=== PATIENT | male | born 1955 | race Caucasian/White ===

== ENCOUNTER → 2016-06-19 | Outpatient (CLI) | payer OTHER ==
[~2016-06-19] MED LIST: HYDR-2768 PO; HYDR-3533 PO; LISI40TA PO; TAB-TAB PO; TAMS0.4C67 PO; VITA100T15 PO; ZOFR4TAB3 SL
[2016-06-19 12:45] LABS: AUTOMATED NEUTROPHIL # 5.9 TH/MM3 (1.8-7.7); BASOPHIL # 0.1 TH/MM3 (0-0.2); BASOPHIL % 0.8 % (0.0-2.0); EOSINOPHIL # 0.2 TH/MM3 (0-0.4); EOSINOPHIL % 2.6 % (0.0-4.0); HEMATOCRIT 45.7 % (39.0-51.0); HEMO FLAGS DIFF FINAL; LYMPH % 23.7 % (9.0-44.0); LYMPHOCYTE # 2.1 TH/MM3 (1.0-4.8); MEAN CELL VOLUME 93.8 FL (80.0-100.0); MEAN CORPUSCULAR HEMOGLOBIN 32.2 PG (27.0-34.0); MEAN CORPUSCULAR HGB CONC 34.4 % (32.0-36.0); MONO % 7.7 % (0.0-8.0); NEUT % 65.2 % (16.0-70.0); PLATELET COUNT 216 TH/MM3 (150-450); RED BLOOD COUNT 4.87 MIL/MM3 (4.50-5.90); RED CELL DISTRIBUTION WIDTH 13.1 % (11.6-17.2)
[2016-06-19 13:23] LABS: ANION GAP 7 MEQ/L (5-15); AST (GOT) 14 U/L (15-37); BICARBONATE 26.8 MEQ/L (21.0-32.0); BLOOD UREA NITROGEN 42 MG/DL (7-18); CHLORIDE 107 MEQ/L (98-107); GLOMERULAR FILTRATION RATE 52 ML/MIN (>89); POTASSIUM 4.5 MEQ/L (3.5-5.1); SODIUM (NA) 141 MEQ/L (136-145)
[2016-06-19 13:31] LABS: ALKALINE PHOSPHATASE 66 U/L (45-117); ALT (GPT) 31 U/L (12-78); GLUCOSE,FASTING 124 MG/DL (74-99); HDL CHOLESTEROL 39.4 MG/DL (40.0-60.0); LDL CHOLESTEROL 106 MG/DL (0-99); TOTAL BILIRUBIN ADULT 0.4 MG/DL (0.2-1.0)
== END ==
LOC: PLAB 07:56
PROVIDERS: ATTEND Family Medicine
DX: I10 Essential (primary) hypertension (principal); N52.9 Male erectile dysfunction, unspecified; R73.01 Impaired fasting glucose
CPT/HCPCS: 80053; 80061; 85025

== ENCOUNTER → 2016-07-20 | Outpatient (CLI) | payer OTHER ==
[2016-07-20 09:47] LABS: BICARBONATE 29.5 MEQ/L (21.0-32.0); HDL CHOLESTEROL 38.9 MG/DL (40.0-60.0); POTASSIUM 4.2 MEQ/L (3.5-5.1)
== END ==
LOC: PLAB 08:00
PROVIDERS: ATTEND Family Medicine
DX: R79.89 Other specified abnormal findings of blood chemistry (principal); E78.2 Mixed hyperlipidemia
CPT/HCPCS: 80048; 80061